=== PATIENT | male | born 1940 | race Caucasian/White ===

== ENCOUNTER → 2016-06-05 | Outpatient (CLI) | payer OTHER ==
[~2016-06-05] MED LIST: ALEVE220 MG PO; ASPIR-LOW81 MG PO; Aspirin E.C. PO; CLOPIDOGREL75 MG PO; DIOVAN HCT 11 TABLE1 PO; Diovan HCT 320/25 PO; IRON325 MG PO; KETOCONAZOLE120 ML TP; LASIX20 MG PO; LO-DOSE ASPIRIN81 M1 PO; LOPRESSOR25 MG PO; LOW DOSE ASPIRI81 M1 PO; NAPROXEN SODIU220 MG PO; PRINIVIL20 MG PO; PROTONIX40 MG PO; RANITIDINE HCL150 MG PO; SIMVASTATIN10 MG PO; Vicodin,Norco 5/325 PO; ZOCOR10 MG PO; Zocor PO
== END | disposition home or self-care (01) ==
DX: M17.11 Unilateral primary osteoarthritis, right knee (principal); M25.561 Pain in right knee; M25.661 Stiffness of right knee, not elsewhere classified; R26.2 Difficulty in walking, not elsewhere classified; M62.89 Other specified disorders of muscle
CPT/HCPCS: 97110 GP; 97150 GO; 97161 GP; 97165 GO; G8978 GP; G8979 GP; G8980 GP; G8987 GO; G8988 GO; G8989 GO

== ENCOUNTER 2016-06-26 07:28 | Inpatient (IN) | payer OTHER ==
[~2016-06-26] VITALS: Ht 175.3 cm; Wt 120.3 kg
[2016-06-26 08:04] VITALS: BP 174/81
[2016-06-26 11:32] LABS: POINT-OF-CARE METER ID UU13113655; POINT-OF-CARE USER ID ENVKLS06
[2016-06-26 13:18] LABS: HEMATOCRIT 39.8 % (38.0-50.0); MCH 25.6 PG (29.0-34.0); MCHC 31.2 G/DL (30.0-36.0); MCV 82.2 FL (86-99); MEAN PLAT.VOLUME 10.7 uM^3 (9.0-12.4); PLATELET COUNT 144 K/uL (156-360); RBC DIS.WIDTH-CV 16.6 % (11.8-14.6); RBC DIS.WIDTH-SD 49.4 % (39-53); RED BLOOD COUNT 4.84 M/uL (4.00-5.50); WHITE BLOOD COUNT 6.8 K/uL (4.1-10.2)
[2016-06-26 15:15] VITALS: BP 141/64
[2016-06-26 19:00] VITALS: BP 180/92
[2016-06-27] VITALS: BP 162/86
[2016-06-27 04:00] VITALS: BP 166/72
[2016-06-27 05:28] LABS: HEMATOCRIT 39.3 % (38.0-50.0); MCV 82.2 FL (86-99)
[2016-06-27 05:52] LABS: ANION GAP 5 MEQ/L (2-14); CHLORIDE 98 MEQ/L (99-109); GFR ESTIMATE (CALCULATED) 53 mL/min/; GLUCOSE 142 mg/dL (70-99); POTASSIUM 5.2 MEQ/L (3.7-5.4); SAMPLE HEMOLYSIS CHECK 0; SAMPLE ICTERIC CHECK 0; SAMPLE LIPEMIA CHECK 0; SODIUM 136 MEQ/L (136-147); UREA NITROGEN (BUN) 29 mg/dL (9-23)
[2016-06-27 08:00] VITALS: BP 140/60
[2016-06-27 12:00] VITALS: BP 153/65
[2016-06-27 16:00] VITALS: BP 152/63
[2016-06-27 19:50] VITALS: BP 184/76
[2016-06-28 00:39] VITALS: BP 185/76
[2016-06-28 03:51] VITALS: BP 134/87
[2016-06-28 04:56] LABS: HEMATOCRIT 33.7 % (38.0-50.0); MCV 81.6 FL (86-99)
[2016-06-28 08:00] VITALS: BP 125/58
[2016-06-28 09:40] LABS: ANION GAP 7 MEQ/L (2-14); CHLORIDE 97 MEQ/L (99-109); GFR ESTIMATE (CALCULATED) 48 mL/min/; GLUCOSE 116 mg/dL (70-99); POTASSIUM 5.1 MEQ/L (3.7-5.4); SAMPLE HEMOLYSIS CHECK 0; SAMPLE ICTERIC CHECK 0; SAMPLE LIPEMIA CHECK 0; SODIUM 135 MEQ/L (136-147); UREA NITROGEN (BUN) 28 mg/dL (9-23)
[2016-06-28 12:00] VITALS: BP 129/58
[2016-06-28 15:45] VITALS: BP 126/61
[2016-06-28 17:58] LABS: BILIRUBIN NEGATIVE; BLOOD NEGATIVE; COLOR YELLOW ((YELLOW)); GLUCOSE (STRIP) NEGATIVE; KETONES NEGATIVE; LEUKOCYTES NEGATIVE; NITRITE NEGATIVE; PROTEIN (STRIP) 30; SPECIFIC GRAVITY 1.023 (1.000-1.030); UROBILINOGEN 0.2 MG/DL (0.2-1.0)
[2016-06-28 18:02] LABS: ADD MIUA? NO
[2016-06-28 19:31] VITALS: BP 148/65
[2016-06-29 00:07] VITALS: BP 118/50
[2016-06-29 07:17] LABS: ANION GAP 9 MEQ/L (2-14); CHLORIDE 95 MEQ/L (99-109); GFR ESTIMATE (CALCULATED) 30 mL/min/; GLUCOSE 146 mg/dL (70-99); POTASSIUM 5.7 MEQ/L (3.7-5.4); SAMPLE HEMOLYSIS CHECK 0; SAMPLE ICTERIC CHECK 0; SAMPLE LIPEMIA CHECK 0; SODIUM 135 MEQ/L (136-147); UREA NITROGEN (BUN) 37 mg/dL (9-23)
[2016-06-29 08:26] VITALS: BP 136/64
[2016-06-29] MEDS ORDERED: TRAMADOL HCL50 MG PO (08:42)
[2016-06-29] MEDS ORDERED: LOVENOX40 MG/0.4 SC (08:42)
[2016-06-29 13:22] LABS: ANION GAP 9 MEQ/L (2-14); CHLORIDE 96 MEQ/L (99-109); GFR ESTIMATE (CALCULATED) 26 mL/min/; GLUCOSE 134 mg/dL (70-99); POTASSIUM 5.8 MEQ/L (3.7-5.4); SAMPLE HEMOLYSIS CHECK 0; SAMPLE ICTERIC CHECK 0; SAMPLE LIPEMIA CHECK 0; SODIUM 134 MEQ/L (136-147); UREA NITROGEN (BUN) 42 mg/dL (9-23)
[2016-06-29 17:22] VITALS: BP 168/72
[2016-06-29 21:52] LABS: ANION GAP 15 MEQ/L (2-14); CHLORIDE 95 MEQ/L (99-109); GFR ESTIMATE (CALCULATED) 27 mL/min/; GLUCOSE 117 mg/dL (70-99); POTASSIUM 4.9 MEQ/L (3.7-5.4); SAMPLE HEMOLYSIS CHECK 0; SAMPLE ICTERIC CHECK 0; SAMPLE LIPEMIA CHECK 0; SODIUM 134 MEQ/L (136-147); UREA NITROGEN (BUN) 53 mg/dL (9-23)
[2016-06-30 00:19] VITALS: BP 198/87
[2016-06-30 00:30] VITALS: BP 154/67
[2016-06-30 05:33] LABS: EOSINOPHIL (%) 4.1 % (0-5); EOSINOPHIL COUNT 0.3 K/uL (0-0.3); IMMATURE GRANULOCYTE (%) 0.1 % (0.0-0.7); MCH 25.2 PG (29.0-34.0); MCHC 30.7 G/DL (30.0-36.0); MCV 82.2 FL (86-99); MEAN PLAT.VOLUME 10.5 uM^3 (9.0-12.4); MONOCYTE (%) 12.2 % (3-12); MONOCYTE COUNT 0.8 K/uL (0-0.8); NEUTROPHIL (%) 68.8 % (45-76); NEUTROPHIL COUNT 4.8 K/uL (1.8-6.4); PLATELET COUNT 150 K/uL (156-360); RBC DIS.WIDTH-CV 17.2 % (11.8-14.6); RBC DIS.WIDTH-SD 51.6 % (39-53); RED BLOOD COUNT 3.65 M/uL (4.00-5.50); WHITE BLOOD COUNT 6.9 K/uL (4.1-10.2)
[2016-06-30 06:11] LABS: ANION GAP 10 MEQ/L (2-14); CHLORIDE 96 MEQ/L (99-109); GFR ESTIMATE (CALCULATED) 31 mL/min/; GLUCOSE 152 mg/dL (70-99); MAGNESIUM 2.8 mg/dl (1.3-2.7); POTASSIUM 4.4 MEQ/L (3.7-5.4); SAMPLE HEMOLYSIS CHECK 0; SAMPLE ICTERIC CHECK 0; SAMPLE LIPEMIA CHECK 0; SODIUM 135 MEQ/L (136-147); UREA NITROGEN (BUN) 55 mg/dL (9-23); URIC ACID 10.1 mg/dL (3.1-9.2)
[2016-06-30 07:51] VITALS: BP 149/79
[2016-06-30 16:38] VITALS: BP 155/68
[2016-06-30 23:40] VITALS: BP 171/70
[2016-07-01 05:24] LABS: HEMATOCRIT 31.2 % (38.0-50.0); MCH 25.1 PG (29.0-34.0); MCHC 30.8 G/DL (30.0-36.0); MCV 81.5 FL (86-99); MEAN PLAT.VOLUME 10.5 uM^3 (9.0-12.4); PLATELET COUNT 188 K/uL (156-360); RBC DIS.WIDTH-CV 16.7 % (11.8-14.6); RBC DIS.WIDTH-SD 49.7 % (39-53); RED BLOOD COUNT 3.83 M/uL (4.00-5.50); WHITE BLOOD COUNT 7.1 K/uL (4.1-10.2)
[2016-07-01 05:31] LABS: EOSINOPHIL (%) 5.3 % (0-5); EOSINOPHIL COUNT 0.4 K/uL (0-0.3); IMMATURE GRANULOCYTE (%) 0.3 % (0.0-0.7); LYMPHOCYTE COUNT 1.3 K/uL (1.0-2.8); MONOCYTE (%) 9.3 % (3-12); MONOCYTE COUNT 0.7 K/uL (0-0.8); NEUTROPHIL (%) 66.4 % (45-76); NEUTROPHIL COUNT 4.7 K/uL (1.8-6.4)
[2016-07-01 06:04] LABS: ANION GAP 9 MEQ/L (2-14); CHLORIDE 100 MEQ/L (99-109); GFR ESTIMATE (CALCULATED) 48 mL/min/; GLUCOSE 115 mg/dL (70-99); MAGNESIUM 2.5 mg/dl (1.3-2.7); POTASSIUM 4.2 MEQ/L (3.7-5.4); SAMPLE HEMOLYSIS CHECK 0; SAMPLE ICTERIC CHECK 0; SAMPLE LIPEMIA CHECK 0; SODIUM 138 MEQ/L (136-147); UREA NITROGEN (BUN) 45 mg/dL (9-23)
[2016-07-01 07:42] VITALS: BP 198/86
[2016-07-01 11:18] LABS: UR CREATININE CONCENTRATION 69.3 MG/DL
[2016-07-01] MEDS ORDERED: PROCARDIA XL30 MG PO (14:58)
[2016-07-01] MEDS ORDERED: METOPROLOL TART50 MG PO (14:58)
[2016-07-01 15:49] VITALS: BP 187/82
== END 2016-07-01 17:48 | disposition home or self-care (01) | DRG 469 ==
LOC: 2SOUTH 07:28 → 3EAST 07:28 → 3WEST 07:28 → 2SOUTH 09:19 → 3WEST 14:49 → SDC 15:05 → EDSTATUS 15:06 → 2SOUTH 15:08 → 3WEST 06-28 09:36 → 3EAST 06-28 17:38
PROVIDERS: Internal Medicine; Internal Medicine Nephrology; Orthopaedic Surgery; Physician Assistant
PROC: 0SRC0J9 Replacement of Right Knee Joint with Synthetic Substitute, Cemented, Open Approach (ICD-10-PCS; principal; 2016-06-26)
DX: M17.11 Unilateral primary osteoarthritis, right knee (principal); G93.40 Encephalopathy, unspecified; N17.9 Acute kidney failure, unspecified; E87.5 Hyperkalemia; N14.1 Nephropathy induced by other drugs, medicaments and biological substances; I10 Essential (primary) hypertension; I25.10 Atherosclerotic heart disease of native coronary artery without angina pectoris; E78.5 Hyperlipidemia, unspecified; K21.9 Gastro-esophageal reflux disease without esophagitis; R06.00 Dyspnea, unspecified; E66.9 Obesity, unspecified; Z68.38 Body mass index [BMI] 38.0-38.9, adult; Z87.891 Personal history of nicotine dependence; Z86.73 Personal history of transient ischemic attack (TIA), and cerebral infarction without residual deficits
CPT/HCPCS: 70450; 71010; 73560; 76770; 78582; 80048; 80048 91; 81003; 82570; 82948; 83735; 84156; 84550; 85014; 85018; 85025; 85027; 85379; 94799; 97530 GO; 97530 GP; A9540; A9567; J0690; J1650; J1815; J2250; J2405; J2765; J3010; J7030

== ENCOUNTER 2016-11-12 11:39 | Emergency (ER) | payer OTHER ==
[~2016-11-12] VITALS: Ht 175.3 cm; Wt 127.2 kg
[~2016-11-12 11:39] MED LIST changes: +LOVENOX40 MG/0.4 SC; +METOPROLOL TART50 MG PO; +PROCARDIA XL30 MG PO; +TRAMADOL HCL50 MG PO
[2016-11-12 14:24] LABS: HEMATOCRIT 37.4 % (38.0-50.0); MCH 24.6 PG (29.0-34.0); MCHC 31.6 G/DL (30.0-36.0); MCV 77.9 FL (86-99); PLATELET COUNT 130 K/uL (156-360); RBC DIS.WIDTH-CV 15.2 % (11.8-14.6); RBC DIS.WIDTH-SD 42.8 % (39-53); WHITE BLOOD COUNT 11.1 K/uL (4.1-10.2)
[2016-11-12 14:34] LABS: CHLORIDE 97 mEq/L (99-109); POTASSIUM 3.7 mEq/L (3.7-5.4); SODIUM 138 mEq/L (136-147)
[2016-11-12 14:35] LABS: GLUCOSE 119 mg/dL (70-99)
[2016-11-12 14:37] LABS: ANION GAP 14 MEQ/L (2-14)
[2016-11-12 14:39] LABS: GFR ESTIMATE (CALCULATED) 39 mL/min/
[2016-11-12 14:40] LABS: UREA NITROGEN (BUN) 31 mg/dL (9-23)
[2016-11-12 14:47] LABS: TROP-I INTERPRETATION NEGATIVE; TROPONIN-I < 0.01 ng/mL (0.0-0.30)
[2016-11-12 18:10] VITALS: BP 148/67
== END 2016-11-12 18:23 | disposition left against medical advice (07) ==
LOC: EME 11:39
DX: R07.9 Chest pain, unspecified (principal); R09.02 Hypoxemia; N17.9 Acute kidney failure, unspecified; R06.02 Shortness of breath; R50.9 Fever, unspecified; R30.0 Dysuria; R33.9 Retention of urine, unspecified; R25.1 Tremor, unspecified; Z87.891 Personal history of nicotine dependence; Z95.5 Presence of coronary angioplasty implant and graft
CPT/HCPCS: 71020; 71250; 80048; 83605; 83880; 84484; 85027; 87040; 93005; 99281; 99284